=== PATIENT | female | born 1940 | race Caucasian/White ===

== ENCOUNTER 2017-10-30 10:17 | Inpatient (IN) | payer MEDICARE, MEDICAID ==
[~2017-10-30] VITALS: Ht 157.5 cm; Wt 73.0 kg
[2017-10-30 11:06] LABS: BASOPHILS % (AUTO) 0.7 % (0.0-2.0); EOSINOPHILS % (AUTO) 3.5 % (1.0-6.0); HEMATOCRIT 36.8 % (36-46); HEMOGLOBIN 12.7 g/dL (12.0-16.0); LYMPHOCYTES % (AUTO) 17.2 % (22.0-44.0); MEAN CORPUSCULAR HGB CONC 34.4 G/dL (31.0-37.0); MEAN CORPUSCULAR VOLUME 90 fL (80-100); MONOCYTES # (AUTO) 0.5 K/uL (0.1-1.0); MONOCYTES % (AUTO) 8.8 % (2.0-9.0); NEUTROPHILS # (AUTO) 4.1 K/uL (1.8-7.7); NEUTROPHILS % (AUTO) 69.8 % (40.0-70.0); PLATELET COUNT (AUTO) 248 K/uL (150-450); RED BLOOD CELL COUNT(AUTO) 4.08 MIL/uL (4.00-5.20); RED CELL DISTRIBUTION WIDTH 14.7 % (11.5-14.5)
[2017-10-30 11:15] LABS: ANION GAP 7 mmol/L (8-16); CALCIUM, TOTAL 9.3 mg/dL (8.8-10.5); CARBON DIOXIDE 26 mmol/L (22-29); CHLORIDE 106 mmol/L (98-107); CREATININE 2.27 mg/dL (0.60-1.30); GLOMERULAR FILTR. RATE CALC 21 mL/min (>60); GLUCOSE,RANDOM 107 mg/dL (70-110); POTASSIUM 4.1 mmol/L (3.5-5.1); SODIUM SERUM 139 mmol/L (136-145); UREA NITROGEN, BLOOD 24 mg/dL (7-18)
[2017-10-30 11:21] LABS: ALANINE AMINOTRANSFERASE 29 U/L (12-78); ALBUMIN 3.9 g/dL (3.4-5.0); ALKALINE PHOSPHATASE 78 U/L (46-116); ASPARTATE AMINOTRANSFERASE 25 U/L (15-37); BILIRUBIN,TOTAL 0.6 mg/dL (0.1-1.0); TOTAL PROTEIN, SERUM 8.1 g/dL (6.4-8.2)
[2017-10-30 12:23] LABS: AMPHET/METH SCREEN,URINE NEGATIVE (NEGATIVE); BARBITURATE SCREEN, URINE NEGATIVE (NEGATIVE); BENZODIAZEPINES SCREEN,URINE NEGATIVE (NEGATIVE); CANNABINOID SCREEN,URINE NEGATIVE (NEGATIVE); COCAINE SCREEN,URINE NEGATIVE (NEGATIVE); METHADONE SCREEN, URINE NEGATIVE (NEGATIVE); OPIATE SCREEN,URINE NEGATIVE (NEGATIVE)
[2017-10-30 12:36] LABS: PHENCYCLIDINE SCREEN,URINE NEGATIVE (NEGATIVE)
[2017-10-30 12:50] LABS: APPEARANCE,URINE CLOUDY (CLEAR); BILIRUBIN,URINE NEGATIVE (NEGATIVE); GLUCOSE, URINE (UA) NEGATIVE (NEGATIVE); KETONES,URINE NEGATIVE (NEGATIVE); LEUKOCYTE ESTERASE ,URINE SMALL (NEGATIVE); NITRATE,URINE NEGATIVE (NEGATIVE); OCCULT BLOOD,URINE SMALL (NEGATIVE); PROTEIN,URINE NEGATIVE (NEGATIVE); UROBILINOGEN,URINE 0.2 mg/dL (<=1.0)
[2017-10-30 13:04] LABS: BACTERIA,URINE Many /HPF (None Seen); SQUAMOUS EPITHELIAL CELL,UR Many /LPF (None Seen)
[2017-10-30] MEDS ORDERED: PARO20TA24 PO (13:45)
[2017-10-30] MEDS ORDERED: ALLO100T PO (13:45)
[2017-10-30] MEDS ORDERED: QUET100T PO (13:45)
[2017-10-30] MEDS ORDERED: VITAD1000 PO (13:45)
[2017-10-30] MEDS ORDERED: ATOR10TA84 PO (13:45)
[2017-10-30] MEDS ORDERED: AMLO2.5T PO (13:45)
[2017-10-30] MEDS ORDERED: CALC25 PO (13:45)
[2017-10-30] MEDS ORDERED: QUEtiapine FUMARATE 100 MG TABLET PO PRN (15:15)
[2017-10-30] MEDS ORDERED: LORazepam 2 MG TABLET PO PRN (15:15)
[2017-10-30] MEDS ORDERED: ZOLPIDEM TARTRATE 10 MG TABLET PO PRN (15:15)
[2017-10-30 17:17] LABS: CHOL/HDL RATIO 3.3 (3.9-5.7); CHOLESTEROL 176 mg/dL (131-200); HDL CHOLESTEROL 53 mg/dL (40-60); LDL CHOL (CALC.) 100 mg/dL (0-130); TRIGLYCERIDES 117 mg/dL (15-150)
[2017-10-30 17:21] VITALS: BP 147/86
[2017-10-30] MEDS ORDERED: INFLUENZA VIRUS VACCINE QVS 2017-18 (3YR+)/PF 60 MCG/0.5 ML SYRINGE IM ONE (18:45)
[2017-10-30] MEDS: ATORVASTATIN CALCIUM 10 MG TABLET PO SCH (20:19)
[2017-10-30] MEDS ORDERED: QUEtiapine FUMARATE 100 MG TABLET PO SCH (21:00)
[2017-10-31 08:15] VITALS: BP 108/68
[2017-10-31] MEDS: PARoxetine HCL 20 MG TABLET PO SCH (10:08)
[2017-10-31] MEDS: CHOLECALCIFEROL (VIT D3) 1,000 UNITS TABLET PO SCH (10:09)
[2017-10-31] MEDS: LEVOFLOXACIN 250 MG TABLET PO SCH (10:10)
[2017-10-31] MEDS: AmLODIPine BESYLATE 2.5 MG TABLET PO SCH (10:10)
[2017-10-31 16:17] VITALS: BP 130/75
[2017-10-31] MEDS: ATORVASTATIN CALCIUM 10 MG TABLET PO SCH (21:28)
[2017-10-31] MEDS: QUEtiapine FUMARATE 25 MG TABLET PO SCH (21:28)
[2017-11-01 09:14] LABS: CALCIUM, TOTAL 9.1 mg/dL (8.8-10.5); CREATININE 2.3 mg/dL (0.60-1.30); POTASSIUM 4.7 mmol/L (3.5-5.1)
[2017-11-01 09:28] LABS: URIC ACID 10.1 mg/dL (2.6-7.2)
[2017-11-01] MEDS: PARoxetine HCL 20 MG TABLET PO SCH (09:40)
[2017-11-01] MEDS: CHOLECALCIFEROL (VIT D3) 1,000 UNITS TABLET PO SCH (09:40)
[2017-11-01] MEDS: AmLODIPine BESYLATE 2.5 MG TABLET PO SCH (09:41)
[2017-11-01] MEDS: LEVOFLOXACIN 250 MG TABLET PO SCH (09:41)
[2017-11-01 12:04] VITALS: BP 127/71
[2017-11-01 16:33] VITALS: BP 114/76
[2017-11-01] MEDS: QUEtiapine FUMARATE 25 MG TABLET PO SCH (21:52)
[2017-11-01] MEDS: ATORVASTATIN CALCIUM 10 MG TABLET PO SCH (21:52)
[2017-11-02 08:00] VITALS: BP 114/71
[2017-11-02] MEDS: LEVOFLOXACIN 250 MG TABLET PO SCH (10:39)
[2017-11-02] MEDS: CHOLECALCIFEROL (VIT D3) 1,000 UNITS TABLET PO SCH (10:39)
[2017-11-02] MEDS: PARoxetine HCL 20 MG TABLET PO SCH (10:39)
[2017-11-02] MEDS: AmLODIPine BESYLATE 2.5 MG TABLET PO SCH (10:39)
[2017-11-02] MEDS ORDERED: LEVO250 PO (13:12)
== END 2017-11-02 14:45 | disposition home or self-care (01) | DRG 885 ==
LOC: EMS 10:21 → 3EI 16:19
DX: F33.3 Major depressive disorder, recurrent, severe with psychotic symptoms (principal); R45.851 Suicidal ideations; N39.0 Urinary tract infection, site not specified; E78.5 Hyperlipidemia, unspecified; E78.00 Pure hypercholesterolemia, unspecified; I12.9 Hypertensive chronic kidney disease with stage 1 through stage 4 chronic kidney disease, or unspecified chronic kidney disease; N18.9 Chronic kidney disease, unspecified; M10.9 Gout, unspecified; Z79.899 Other long term (current) drug therapy
CPT/HCPCS: 71046; 84550; 87086; 99285; G0480